=== PATIENT | female | born 1935 | race Caucasian/White ===

== ENCOUNTER 2023-08-18 19:34 | Inpatient (IN) | payer OTHER ==
[~2023-08-18] VITALS: Ht 152.4 cm; Wt 50.2 kg
[2023-08-18 20:02] VITALS: O2SAT 97
[2023-08-18 22:52] LABS: BASOPHILS % (AUTO) 0.2 % (0.0-2.0); EOSINOPHILS # (AUTO) 0.1 K/uL (0.0-0.7); EOSINOPHILS % (AUTO) 1.8 % (0.0-6.0); HEMATOCRIT 42 % (33-45); HEMOGLOBIN 14.2 g/dL (11.5-14.8); LYMPHOCYTES # (AUTO) 0.8 K/uL (0.8-4.8); LYMPHOCYTES % (AUTO) 16.9 % (20.0-44.0); MEAN CORPUSCULAR HEMOGLOBIN 31 PG (26.0-33.0); MEAN CORPUSCULAR HGB CONC 34 g/dl (31.0-36.0); MEAN CORPUSCULAR VOLUME 93 fL (82-100); MONOCYTES # (AUTO) 0.3 K/uL (0.1-1.30); MONOCYTES % (AUTO) 6.1 % (2.0-12.0); NEUTROPHILS # (AUTO) 3.3 K/uL (1.8-8.9); PLATELET COUNT (AUTO) 159 K/uL (150-450); RED BLOOD CELL COUNT(AUTO) 4.54 MIL/uL (4.0-5.2); RED CELL DISTRIBUTION WIDTH 13.6 % (11.5-15.0); WHITE BLOOD COUNT (AUTO) 4.5 K/uL (4.3-11.0)
[2023-08-18 23:31] LABS: CALCIUM, SERUM 9.3 mg/dL (8.5-10.1); CARBON DIOXIDE 29 mmol/L (21-32); CHLORIDE 105 mmol/L (98-107); CREATININE 0.7 mg/dL (0.6-1.3); GLUCOSE 89 mg/dL (74-106); POTASSIUM 3.7 mmol/L (3.5-5.1); SODIUM SERUM 142 mmol/L (136-145); UREA NITROGEN, BLOOD 16 mg/dL (7-18)
[2023-08-19] MEDS ORDERED: TEMAZEPAM 15 MG CAPSULE PO PRN (00:30)
[2023-08-19] MEDS ORDERED: MAGNESIUM HYDROXIDE 30 ML UDC PO PRN (00:30)
[2023-08-19] MEDS ORDERED: HYDROMORPHONE INJ 2 MG/ML DISP.SYRIN IV PRN (00:30)
[2023-08-19] MEDS ORDERED: ONDANSETRON HCL/PF 4 MG/2 ML VIAL IVP PRN (00:30)
[2023-08-19] MEDS ORDERED: MAG HYDROX/AL HYDROX/SIMETH 30 ML UDC PO PRN (00:30)
[2023-08-19] MEDS ORDERED: MORPHINE SULFATE INJ 2 MG/ML DISP.SYRIN IV PRN (00:30)
[2023-08-19] MEDS ORDERED: HYDROCODONE/APAP 5/325MG TABLET PO PRN (00:30)
[2023-08-19] MEDS ORDERED: Z GUARD REMEDY 4 OZ OINT TP PRN (00:30)
[2023-08-19] MEDS ORDERED: ACETAMINOPHEN 325 MG TABLET PO PRN ×2 (00:30→12:00)
[2023-08-19 03:17] VITALS: BP 131/66; TEMP 97.5; O2SAT 94
[2023-08-19] MEDS ORDERED: PANTOPRAZOLE 40 MG TABLET.DR PO SCH (07:30)
[2023-08-19] MEDS ORDERED: PRAV10TA40 PO (08:43)
[2023-08-19] MEDS ORDERED: ARIP2TAB19 PO (08:43)
[2023-08-19] MEDS ORDERED: MIRT7.5T10 PO (08:43)
[2023-08-19] MEDS ORDERED: ALEN70TA80 MT (08:43)
[2023-08-19] MEDS ORDERED: ACET-868 PO (08:43)
[2023-08-19] MEDS ORDERED: ESCI10TA PO (08:43)
[2023-08-19 08:44] VITALS: BP_SYST 123; BP_SYST 153; BP_DIAS 64; BP_DIAS 96; TEMP 97.5; TEMP 97.9; O2SAT 94; O2SAT 96
[2023-08-19] MEDS ORDERED: MULT-188 PO (08:46)
[2023-08-19] MEDS ORDERED: LACT1CAP71 PO (08:46)
[2023-08-19] MEDS ORDERED: CHOL100043 PO (08:46)
[2023-08-19] MEDS ORDERED: CALC1TAB30 PO (08:46)
[2023-08-19] MEDS ORDERED: TURM500C9 PO (08:46)
[2023-08-19 15:53] VITALS: BP_SYST 109; BP_SYST 131; BP_DIAS 71; BP_DIAS 72; TEMP 97.8; TEMP 98.8; O2SAT 98
[2023-08-19] MEDS ORDERED: Medication Not On Formulary EA (Turmeric Root Extract (Turmeric) 500 MG) PO SCH (17:00)
[2023-08-19] MEDS ORDERED: ATORVASTATIN 10 MG TABLET PO SCH (22:00)
[2023-08-19] MEDS ORDERED: MIRTAZAPINE 15 MG TABLET PO SCH (22:00)
[2023-08-19] MEDS ORDERED: ARIPIPRAZOLE 2 MG TABLET PO SCH (22:00)
[2023-08-20] MEDS ORDERED: MULTIVIT W/MINERALS 1 TAB TABLET PO SCH (09:00)
[2023-08-20] MEDS ORDERED: CALCIUM CARB 600MG /VIT D 1 EACH TABLET PO SCH (09:00)
[2023-08-20] MEDS ORDERED: CHOLECALCIFEROL 1,000 UNIT TABLET (VIT D3) PO SCH (09:00)
[2023-08-20] MEDS ORDERED: ESCITALOPRAM OXALATE (10 MG) 10 MG TABLET PO SCH (09:00)
[2023-08-20] MEDS ORDERED: LACTOBACILLUS RHAMNOSUS GG 1 EACH CAP.SPRINK PO SCH (09:00)
[2023-08-21] MEDS ORDERED: ALENDRONATE 70 MG TABLET PO SCH (12:00)
== END 2023-08-19 20:40 | DRG 544 ==
LOC: EDBD 19:37 → ER 19:37 → MED 08-19 00:15
PROVIDERS: ADMIT Nurse Practitioner Family; ATTEND Nurse Practitioner Family
DX: M84.48XA Pathological fracture, other site, initial encounter for fracture (principal); E78.5 Hyperlipidemia, unspecified; F32.A Depression, unspecified; M81.0 Age-related osteoporosis without current pathological fracture; Z85.3 Personal history of malignant neoplasm of breast; M43.12 Spondylolisthesis, cervical region; M51.34 Other intervertebral disc degeneration, thoracic region; M47.819 Spondylosis without myelopathy or radiculopathy, site unspecified; Z91.81 History of falling
CPT/HCPCS: 36415; 70450-TC; 71045-TC; 72125-TC; 72128-TC; 72131-TC; 72141-TC; 72146-TC; 72148-TC; 72170-TC; 80048-TC; 85025-TC; 87081-TC; 97535-TC; G0378; L0172